=== PATIENT | male | born 1945 | race Caucasian/White ===

== ENCOUNTER 2017-02-15 15:09 | Inpatient (IN) ==
[2017-02-15] MEDS ORDERED: ONDANSETRON 4 MG/2 ML INJECTION IVP ONE (15:31)
--- NOTE | 2017-02-15 15:45 | Emergency Department Report ---
Abdominal Pain HPI - General Chief Complaint: Abdominal Pain Stated Complaint: Stomach pains Time Seen by Provider: 02/15/17 15:23 Source: patient Mode of arrival: ambulatory Limitations: no limitations - History of Present Illness MD complaint: abdominal pain Onset (ago): day(s) (6) Consistency: constant Location: diffuse Severity: moderate Quality: sharp Radiation: none Migration to: no migration Relieving factors: nothing Exacerbating factors: nothing Associated symptoms: denies other symptoms - Related Data Home Medications Medication Instructions Recorded Confirmed Aspirin 325 mg PO DAILY #0 08/19/16 02/15/17 Simvastatin 20 mg PO HS #0 08/19/16 02/15/17 raNITIdine HCl [Acid Windows Mobile Developer] 150 mg PO BID #0 08/19/16 02/15/17 Metoprolol Tartrate 25 mg PO BID #0 08/21/16 02/15/17 Nitroglycerin [Nitrostat] 0.4 mg PO Q5MIN3 PRN #0 08/21/16 02/15/17 Hydrocodone/APAP 5/325 [[place] 1 tab PO Q6H PRN 02/15/17 02/15/17 5/325] Sennosides/Docusate Sodium [Stool 2 tab PO DAILY PRN 02/15/17 02/15/17 Softener Tablet] Allergies Allergy/AdvReac Type Severity Reaction Status Date / Time morphine Allergy Unknown Verified 09/29/16 14:36 hydromorphone AdvReac Mild AGGRESSIVE Verified 09/29/16 14:36 BEHAVIOR Review of Systems Constitutional: Denies: fever, chills, weakness ENT: Denies: ear pain, throat pain, congestion Cardiovascular: Denies: chest pain, palpitations, dyspnea on exertion, edema Respiratory: Denies: cough, dyspnea, wheezes Gastrointestinal: Reports: abdominal pain. Denies: nausea, vomiting, diarrhea, constipation Integumentary: Denies: rash Neurological: Denies: headache, weakness, numbness, paresthesias PFSH CAD CHF HTN hyperlipidemia pancreatitis Surgical History: CABG. cardiac stenting. right shoulder. cholecystectomy. umbilical hernia repair. inguinal hernia repair. back surgery - Social History Smoking status: Former smoker Substance use type: does not use Alcohol intake frequency: does not drink Physical Exam - Limitations Limitations: no limitations - General General appearance: alert, in no apparent distress - Normal Exams: Neck:: Full range of motion, without adenopathy, JVD, bruits or thyromegaly Chest/Respirations:: Clear all pike, with good airflow, and symmetry bilaterally Cardiovascular:: Regular rate and rhythm, without murmur or gallop, Pulses 2+ all extremities, capillary refill, <2 seconds all extremities Integumentary:: No rashes, hives, or bruising noted Neurological:: Patient is alert, and oriented Psychiatric:: Patient exhibits, appropriate attention, emotion and affect - Abdominal Exam Abdominal exam: Present: distention, tenderness (diffuse moderate TTP on all quadrants), guarding, hypoactive bowel sounds. Absent: soft (firm), rebound Course Vital Signs Temperature 97.8 F 02/15/17 15:24 Pulse Rate 72 02/15/17 15:24 Respiratory Rate 18 02/15/17 15:24 Blood Pressure 171/79 H 02/15/17 15:24 Pulse Oximetry 94 02/15/17 15:24 Temperature 97.8 F 02/15/17 15:24 Pulse Rate 72 02/15/17 15:24 Respiratory Rate 18 02/15/17 15:24 Blood Pressure 171/79 H 02/15/17 15:24 Pulse Oximetry 94 02/15/17 15:24 Abdominal Pain - MDM Narrative Medical decision making narrative: WBC 11.0 with 80.9 neutrophils, no band. CMP is normal. Lipase is 9049. CT of abdomen/pelvis is positive for pancreatitis but negative otherwise. Did speak with Dr Berg and she will accept for admission at this time. - Differential Diagnosis Differential diagnosis: Likely: abdominal pain, acute appendicitis, constipation , diverticulitis, small bowel obstruction - Lab Data Attestation: I reviewed the patient's lab results. Result diagrams: 02/15/17 15:38 02/15/17 15:38 - Radiology Data Attestation: I reviewed the patient's radiology results. Disposition Clinical Impression: Pancreatitis Qualifiers: Chronicity: acute Pancreatitis type: unspecified pancreatitis type Acute pancreatitis complication: no infection or necrosis Qualified Code(s): K85.90 - Acute pancreatitis without necrosis or infection, unspecified Disposition: Discharged Home, Self-Care Condition: Stable Prescriptions: No Action Aspirin 325 mg PO DAILY #0 raNITIdine HCl [Acid Windows Mobile Developer] 150 mg PO BID #0 Metoprolol Tartrate 25 mg PO BID #0 Hydrocodone/APAP 5/325 [[place] 5/325] 1 tab PO Q6H PRN PRN Reason: Pain Sennosides/Docusate Sodium [Stool Softener Tablet] 2 tab PO DAILY PRN PRN Reason: Constipation Simvastatin 20 mg PO HS #0 Nitroglycerin [Nitrostat] 0.4 mg PO Q5MIN3 PRN #0 PRN Reason: Chest Pain Referrals: ALLY HORNE MD [Other] Time of Disposition: 16:39 - Seen By: leroy
[2017-02-15] MEDS: NS 1,000 ML IV SCH ×2 (15:47→18:43)
[2017-02-15] MEDS: SALINE FLUSH 10ml SYRINGE IVF PRN ×2 (15:47→18:42)
[2017-02-15] MEDS ORDERED: IOHEXOL 300mg/ml 100ml INJECTION ONE (15:59)
[2017-02-15] MEDS ORDERED: SALINE FLUSH 10ml SYRINGE ONE (15:59)
[2017-02-15] MEDS ORDERED: NS 100 ML ONE (15:59)
--- NOTE | 2017-02-15 16:30 | CT Scan Report ---
Indication: Generalized abdominal pain and nausea for five days PROCEDURE: CT abdomen pelvis w con: Encounter: Initial Comparison: CT abdomen and pelvis dated August 20, 2016 Technique: Axial CT images were performed through the abdomen and pelvis after the administration of intravenous contrast. Coronal and sagittal two-dimensional reformats. Automated Exposure Control and Iterative Reconstruction dose reducing techniques were utilized. Contrast: Omnipaque 300 100 mL Findings: Mild atelectasis in the lower lobes. Heart is enlarged. The liver is normal. Gallbladder is surgically absent. The spleen is normal. There is significant inflammatory change surrounding the pancreatic body and tail with some fluid and inflammation in the lesser sac tracking into the root of the mesentery. The pancreas enhances uniformly however. The adrenal glands and kidneys are stable with bilateral lower pole renal calculi. Portal vein and SMV appear patent. There is a 3.3 cm infrarenal abdominal aortic aneurysm, stable from the comparison exam. No abdominal or pelvic lymphadenopathy. Bladder is grossly normal. No free fluid. Moderate stool throughout the colon. No evidence of a bowel obstruction. The appendix is normal. Bone windows show degenerative change in the lower lumbar spine. Impression: Acute pancreatitis. .
[2017-02-15] MEDS ORDERED: KETOROLAC 30 MG/ML INJECTION IVP ONE (16:32)
[2017-02-15] MEDS ORDERED: ACETAMINOPHEN 325 MG TABLET PO PRN (18:25)
[2017-02-15] MEDS ORDERED: ONDANSETRON 4 MG/2 ML INJECTION IVP PRN (18:25)
[2017-02-15] MEDS ORDERED: METOCLOPRAMIDE 10mg/2ml INJECTION IVP PRN (18:25)
[2017-02-15] MEDS ORDERED: NITROGLYCERIN 0.4 MG SUBLINGUAL TABLET SL PRN (18:32)
[2017-02-15] MEDS: PANTOPRAZOLE 40 MG INJECTION IVP SCH (18:43)
[2017-02-15] MEDS: FentaNYL 100 MCG/2 ML INJECTION IVP PRN ×2 (18:46→22:21)
--- NOTE | 2017-02-15 20:53 | History & Physical Report ---
History of Present Illness Date: 02/15/17 Chief complaint: abdominal pain HPI: Mr. Kathleen 72-year-old gentleman with history of recurrent pancreatitis. Briefly 5 days ago he developed lower abdominal discomfort after lunch. There is no associated nausea or vomiting and symptoms are not typical of past episodes pancreatitis. 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 He thought he might have some mild food poisoning although he had no nausea and no diarrhea. Last night pain intensified and he developed increasing bloating, abdominal distention, nausea, and dry heaves. He has had sweats for the last 2 nights and is unsure if there' s been fever. Pain worsened further this morning when he attempted to eat a banana he breakfast. Subsequently presented to the emergency room where lipase was found to be a little over [address] scan was consistent with acute pancreatitis. Patient is admitted at this time for further management. At the time of assessment he reports that this pain is 7-8 out of 10. Review of Systems All systems: reviewed and no additional remarkable complaints except as stated ( minor cough for several days. Remainder of comprehensive review of systems was negative or as per history of present illness.) [facility] Patient Stated Medical History Congestive Heart Failure-systolic Yes Coronary Artery Disease Yes Hypertension Yes Myocardial Infarction Yes Abdominal aortic aneurysm Pancreatitis, recurrent Surgical History: CABG. cardiac stenting. right rotator cuff 2. cholecystectomy. umbilical hernia repair. Right inguinal hernia repair 2. Left inguinal hernia repair 1. Lumbar disc surgery. inguinal hernia repair. back surgery - Social History Smoking status: Former smoker (approximately [id number] history discontinued 16 months ago) Substance use type: does not use Alcohol intake frequency: other (occasional) Social history: Primary care physician-Dr. Lora Investment Banking Manager-Dr. Mckeon DPOA-, Berna Kathleen CODE STATUS-full Medications Home Medications Medication Instructions Recorded Confirmed Type Aspirin 325 mg PO DAILY #0 08/19/16 02/15/17 History Simvastatin 20 mg PO HS #0 08/19/16 02/15/17 History raNITIdine HCl [Acid Logger Driving Horses] 150 mg PO BID #0 08/19/16 02/15/17 History Metoprolol Tartrate 25 mg PO BID #0 08/21/16 02/15/17 History Nitroglycerin [Nitrostat] 0.4 mg PO Q5MIN3 PRN #0 08/21/16 02/15/17 History Hydrocodone/APAP 5/325 [[place] 1 tab PO Q6H PRN 02/15/17 02/15/17 History 5/325] Sennosides/Docusate Sodium [Stool 2 tab PO DAILY PRN 02/15/17 02/15/17 History Softener Tablet] Allergies Allergy/AdvReac Type Severity Reaction Status Date / Time morphine Allergy Unknown Verified 09/29/16 14:36 hydromorphone AdvReac Mild AGGRESSIVE Verified 09/29/16 14:36 BEHAVIOR Exam Vital Signs: Temp Pulse Resp BP Pulse Ox 97.8 F 74 20 153/67 H 94 02/15/17 17:23 02/15/17 17:23 02/15/17 17:23 02/15/17 17:23 02/15/17 17:23 EXAM: General-moderately obese male, uncomfortable, on room air HEENT-PERRL, EOMI without nystagmus, conjugate gaze, conjunctiva clear, sclera anicteric facial structures symmetric, oropharynx clear, neck supple and without adenopathy Lungs-respirations nonlabored, good airflow, breath sounds clear Cardiac-regular rhythm, S1-S2, 2/6 systolic murmur along the left sternal border Abd-soft, tender to palpation in the upper abdomen more than the lower abdomen, guarding in the upper abdomen, bowel sounds diminished Ext-without edema Skin-without rash or wounds MS-no active synovitis Neuro-moving all extremities well, normal motor tone and power, cranial nerves III through XII grossly intact, sensation intact to light touch 4 extremities Psych-calm, cooperative Height: 1.83 m Weight: 115.7 kg Body Mass Index: 34.6 Results - Labs CBC & Chem 7: 02/15/17 15:38 02/15/17 15:38 Labs: Liver enzymes unremarkable, lipase 9049 Urinalysis +2 protein, trace ketones, +1 bilirubin, 0-1 WBC, 3-5 RBC - Imaging and Cardiology CT scan - abdomen Status: image reviewed by me (bases of the lungs are clear, cardiomegaly, inflammation around the pancreas. 3.3 cm infrarenal aortic aneurysm) Assessment and Plan (1) Pancreatitis Current visit: Yes Status: Acute Assessment and Plan: Acute pancreatitis Uncontrolled abdominal pain Nausea Coronary artery disease Hypertension Chronic systolic CHF-ejection fraction 20-25% 01/16 per old records Infrarenal aortic aneurysm-unchanged from 08/18 Patient is admitted with acute symptomatic pancreatitis. He'll be treated in conventional manner with IV fluids, bowel rest, antiemetics, and IV analgesics. IV PPI initiated. He is intolerant of morphine and Dilaudid and subsequently IV fentanyl will be utilized for pain control. Advance diet as tolerated, monitor electrolytes/liver enzymes, continue home medications for heart disease and hypertension with sips of fluid. SCDs for DVT prophylaxis. Length of stay anticipated to be greater than 2 days. Discussed with ER provider, high-risk medications in use, CT scan reviewed by myself, old records reviewed, laboratory data reviewed. Sepsis Assessment - Evaluation Sepsis screening result: No Definite Risk - Focused Exam Vital Signs Temp Pulse Resp BP Pulse Ox 02/15/17 17:23 97.8 F 74 20 153/67 H 94 02/15/17 17:12 96.7 F L 74 18 163/85 H 95 Hospital Course Summary Disclaimer: The visit summary below is not to be considered part of the above Progress Note. Hospital Course: 02/15/17 21:11 Patient is admitted with acute symptomatic pancreatitis. He'll be treated in conventional manner with IV fluids, bowel rest, antiemetics, and IV analgesics. IV PPI initiated. He is intolerant of morphine and Dilaudid and subsequently IV fentanyl will be utilized for pain control. Advance diet as tolerated, monitor electrolytes/liver enzymes, continue home medications for heart disease and hypertension with sips of fluid. SCDs for DVT prophylaxis. Length of stay anticipated to be greater than 2 days.
[2017-02-15] MEDS: SIMVASTATIN 20 MG TABLET PO SCH (22:24)
[2017-02-16] MEDS: FentaNYL 100 MCG/2 ML INJECTION IVP PRN ×6 (01:42→22:31)
[2017-02-16] MEDS: NS 1,000 ML IV SCH ×3 (04:28→14:52)
[2017-02-16] MEDS: PANTOPRAZOLE 40 MG INJECTION IVP SCH (08:21)
[2017-02-16] MEDS: ASPIRIN 325 MG TABLET PO SCH (08:21)
--- NOTE | 2017-02-16 17:47 | Progress Note ---
Subjective: He reports persistent abdominal pain primarily in the upper abdomen but less bloating than last night and no nausea or vomiting this morning. He has not had a bowel movement since admission but reports minimal oral intake for several days. He has minor dyspnea which is typical but denies wheezing or significant cough. Occasionally cough is productive of clear sputum but he again indicates that this is chronic. He is having a little bit of chest pressure which he attributes to reflux due to lying down continuously. Abdominal pain is now rated 4-5/10. He denied lightheadedness or fevers. He is not hungry and has tolerated ice chips and sips of fluid overnight. Objective Vital signs: Temp Pulse Resp BP Pulse Ox 97.6 F 82 18 138/73 93 02/16/17 15:02/16/17 15:02/16/17 15:02/16/17 15:02/16/17 15:06 Fluid balance +1.7 L EXAM General-NAD, alert, fluent speech HEENT-conjunctiva clear, sclera anicteric, oropharynx clear Lungs-respirations nonlabored, good airflow, breath sounds clear anteriorly/ posteriorly Cardiac-regular rhythm, S1-S2 Abd-soft, moderate distention, mild generalized tenderness-significantly improved from admission, active bowel sounds Ext-without edema Neuro-moving all extremities well/spontaneously Psych-oriented 3, calm, cooperative - Weight: 116.3 kg Results - Labs CBC & Chem 7: 02/16/17 04:42 02/16/17 04:42 Labs: Liver enzymes normal Assessment and Plan (1) Pancreatitis Current visit: Yes Status: Acute Assessment and Plan: Acute pancreatitis Uncontrolled abdominal pain Nausea-improved GERD-symptomatic Coronary artery disease Hypertension Chronic systolic CHF-ejection fraction 20-25% 01/16 per old records Infrarenal aortic aneurysm-unchanged from 08/18 Abdominal symptoms are improving slowly. Continue IV fluids. Continues to require fentanyl IV for pain control with 4 doses since midnight. Reassess electrolytes/lipase in a.m. Clear liquids initiated-advance diet as tolerated. Patient reports some reflux and that in the past has not tolerated PPIs well and has done better with ranitidine than other agents. Home dose of ranitidine resumed orally but will continue IV PPI at present. Blood pressure modestly elevated overnight but appears to be improving as pain control stabilizes. Minor hypoxia present overnight, likely due to narcotic use. Continue to monitor. Laboratory data reviewed, supplemental history provided by the patient's and nursing, high-risk medications in use. Sepsis Assessment - Evaluation Sepsis screening result: No Definite Risk - Focused Exam Vital Signs Temp Pulse Resp BP Pulse Ox 02/16/17 15:06 97.6 F 82 18 138/73 93 02/16/17 06:46 92 02/16/17 06:45 98.8 F 92 22 148/72 H 88 L Capillary refill: < 2-3 Seconds Hospital Course Summary Disclaimer: The visit summary below is not to be considered part of the above Progress Note. Hospital Course: 02/15/17 21:11 Patient is admitted with acute symptomatic pancreatitis. He'll be treated in conventional manner with IV fluids, bowel rest, antiemetics, and IV analgesics. IV PPI initiated. He is intolerant of morphine and Dilaudid and subsequently IV fentanyl will be utilized for pain control. Advance diet as tolerated, monitor electrolytes/liver enzymes, continue home medications for heart disease and hypertension with sips of fluid. SCDs for DVT prophylaxis. Length of stay anticipated to be greater than 2 days. 02/16/17 17:51 Abdominal symptoms are improving slowly. Continue IV fluids. Continues to require fentanyl IV for pain control with 4 doses since midnight. Reassess electrolytes/lipase in a.m. Clear liquids initiated-advance diet as tolerated. Patient reports some reflux and that in the past has not tolerated PPIs well and has done better with ranitidine than other agents. Home dose of ranitidine resumed orally but will continue IV PPI at present. Blood pressure modestly elevated overnight but appears to be improving as pain control stabilizes. Minor hypoxia present overnight, likely due to narcotic use. Continue to monitor. 02/16/17 17:53
[2017-02-16] MEDS: SIMVASTATIN 20 MG TABLET PO SCH (22:25)
[2017-02-16] MEDS: RANITIDINE 150 MG TABLET PO SCH (22:25)
[2017-02-17] MEDS: FentaNYL 100 MCG/2 ML INJECTION IVP PRN ×8 (00:15→22:47)
[2017-02-17] MEDS: SALINE FLUSH 10ml SYRINGE IVF PRN ×3 (00:15→04:12)
[2017-02-17] MEDS: NS 1,000 ML IV SCH ×2 (00:16→12:07)
[2017-02-17] MEDS: ASPIRIN 325 MG TABLET PO SCH (09:20)
[2017-02-17] MEDS: RANITIDINE 150 MG TABLET PO SCH ×2 (09:20→22:50)
[2017-02-17] MEDS: PANTOPRAZOLE 40 MG INJECTION IVP SCH (09:21)
--- NOTE | 2017-02-17 13:05 | Progress Note ---
Subjective: Pt reports he is still having some abdominal discomfort. Reports he ate broth during the day yesterday and he had severe abdominal pain at night with n/v. Denies any cp, sob, f/c. Objective Vital signs: Temp Pulse Resp BP Pulse Ox 99.3 F 93 18 156/74 H 92 02/17/17 07:59 02/17/17 07:59 02/17/17 07:59 02/17/17 07:59 02/17/17 07:59 Weight: 118.2 kg - Constitutional Present: no acute distress, well nourished - Routine HEENT Exam Head: Present: normocephalic Eye: Present: EOMI ENT: Present: mucous membranes moist - Routine Respiratory Exam Present: CTA bilaterally. Absent: wheezes - Routine Cardiovascular Exam Present: RRR, no murmur - Routine Abdominal Exam Present: soft, tenderness, distended - Routine Extremities Exam Absent: cyanosis, clubbing, edema - Routine Skin Exam Present: intact, dry - Routine Neurological Exam Present: alert, oriented X3 Results - Labs CBC & Chem 7: 02/16/17 04:42 02/17/17 03:58 Assessment and Plan (1) Pancreatitis Current visit: Yes Status: Acute Assessment and Plan: Acute recurrent pancreatitis -Unclear etiology, lipase 9K, CT shows diffuse inflammation -First had multiple episodes 10-12 yrs ago but not since GB had been taken out 10 yrs ago, but now 2 episodes in the last 6 months -Denies frequent EtOH use, med list not that impressive other then possibly simvastatin(will hold), former smoker, Ca wnls -Order lipid panel, igg4, needs EUS/ERCP -advance diet as tolerated, pain control Coronary artery disease -Cont. home ASA, Metoprolol -Hold simvastatin d/t pancreatitis Hypertension -Cont. Metoprolol HFrEF -ejection fraction 20-25% 01/16 per old records -Careful IV fluids, on BB but no ACEI? spiralactone? ICD? Infrarenal aortic aneurysm-unchanged from 08/18 Ppx -DVT-SCD Sepsis Assessment - Evaluation Sepsis screening result: No Definite Risk - Focused Exam Vital Signs Temp Pulse Resp BP Pulse Ox 02/17/17 07:59 99.3 F 93 18 156/74 H 92 Capillary refill: < 2-3 Seconds Hospital Course Summary Disclaimer: The visit summary below is not to be considered part of the above Progress Note. Hospital Course: 02/15/17 21:11 Patient is admitted with acute symptomatic pancreatitis. He'll be treated in conventional manner with IV fluids, bowel rest, antiemetics, and IV analgesics. IV PPI initiated. He is intolerant of morphine and Dilaudid and subsequently IV fentanyl will be utilized for pain control. Advance diet as tolerated, monitor electrolytes/liver enzymes, continue home medications for heart disease and hypertension with sips of fluid. SCDs for DVT prophylaxis. Length of stay anticipated to be greater than 2 days. 02/16/17 17:51 Abdominal symptoms are improving slowly. Continue IV fluids. Continues to require fentanyl IV for pain control with 4 doses since midnight. Reassess electrolytes/lipase in a.m. Clear liquids initiated-advance diet as tolerated. Patient reports some reflux and that in the past has not tolerated PPIs well and has done better with ranitidine than other agents. Home dose of ranitidine resumed orally but will continue IV PPI at present. Blood pressure modestly elevated overnight but appears to be improving as pain control stabilizes. Minor hypoxia present overnight, likely due to narcotic use. Continue to monitor. 02/16/17 17:53 02/17/17 13:05 Pt improving slowly although did not tolerate diet well yesterday, unclear how much work up pt has had for his recurrent pancreatitis, will do some work up now and pt will likely need EUS/ERCP. Cont. to manage supportively. Pt seems to have a diagnosis of HFrEF but not on optimal medical therapy for unclear reasons , will need to review chart further.
[2017-02-18] MEDS: NS 1,000 ML IV SCH ×2 (00:21→09:59)
[2017-02-18] MEDS: FentaNYL 100 MCG/2 ML INJECTION IVP PRN ×2 (02:43→06:56)
[2017-02-18] MEDS ORDERED: HYDROCODONE/APAP 5mg/325mg TABLET PO PRN (09:05)
--- NOTE | 2017-02-18 09:09 | Progress Note ---
Subjective: Pt reports he is feeling better this am. He tried some sort of ice cream thing last night and tolerated that okay. Reports some bloating and mild abdominal pain. Denies any cp, sob, n/v/d, f/c. Objective Vital signs: Temp Pulse Resp BP Pulse Ox 99.5 F 81 24 146/81 H 93 02/18/17 07:45 02/18/17 07:45 02/18/17 07:45 02/18/17 07:45 02/18/17 07:45 Weight: 117.5 kg - Constitutional Present: no acute distress, well nourished - Routine HEENT Exam Head: Present: normocephalic, atraumatic - Routine Respiratory Exam Present: CTA bilaterally. Absent: wheezes - Routine Cardiovascular Exam Present: RRR, no murmur - Routine Abdominal Exam Present: soft, non tender, distended - Routine Extremities Exam Absent: cyanosis, clubbing, edema - Routine Skin Exam Present: intact, dry - Routine Neurological Exam Present: alert, oriented X3 Results - Labs CBC & Chem 7: 02/16/17 04:42 02/18/17 04:13 Assessment and Plan (1) Pancreatitis Current visit: Yes Status: Acute Assessment and Plan: Acute recurrent pancreatitis -Unclear etiology, lipase 9K, CT shows diffuse inflammation -First had multiple episodes 10-12 yrs ago but not since GB had been taken out 10 yrs ago, but now 2 episodes in the last 6 months -Denies frequent EtOH use, med list not that impressive other then possibly simvastatin(will hold), former smoker, Ca wnls -lipid panel pending, igg4 pending, needs EUS/ERCP -advance diet as tolerated, pain control Coronary artery disease -Cont. home ASA, Metoprolol -Hold simvastatin d/t pancreatitis Hypertension -Cont. Metoprolol HFrEF -ejection fraction 20-25% 01/16 per old records -Careful IV fluids, on BB but no ACEI? spiralactone? ICD? Infrarenal aortic aneurysm-unchanged from 08/18 Ppx -DVT-SCD Sepsis Assessment - Evaluation Sepsis screening result: No Definite Risk - Focused Exam Vital Signs Temp Pulse Resp BP Pulse Ox 02/18/17 07:45 99.5 F 81 24 146/81 H 93 02/17/17 22:00 97.2 F 77 16 159/74 H 93 Respiratory exam: Present: CTA bilaterally. Absent: wheezes Cardiovascular exam: Present: RRR, no murmur Capillary refill: < 2-3 Seconds Hospital Course Summary Disclaimer: The visit summary below is not to be considered part of the above Progress Note. Hospital Course: 02/15/17 21:11 Patient is admitted with acute symptomatic pancreatitis. He'll be treated in conventional manner with IV fluids, bowel rest, antiemetics, and IV analgesics. IV PPI initiated. He is intolerant of morphine and Dilaudid and subsequently IV fentanyl will be utilized for pain control. Advance diet as tolerated, monitor electrolytes/liver enzymes, continue home medications for heart disease and hypertension with sips of fluid. SCDs for DVT prophylaxis. Length of stay anticipated to be greater than 2 days. 02/16/17 17:51 Abdominal symptoms are improving slowly. Continue IV fluids. Continues to require fentanyl IV for pain control with 4 doses since midnight. Reassess electrolytes/lipase in a.m. Clear liquids initiated-advance diet as tolerated. Patient reports some reflux and that in the past has not tolerated PPIs well and has done better with ranitidine than other agents. Home dose of ranitidine resumed orally but will continue IV PPI at present. Blood pressure modestly elevated overnight but appears to be improving as pain control stabilizes. Minor hypoxia present overnight, likely due to narcotic use. Continue to monitor. 02/16/17 17:53 02/17/17 13:05 Pt improving slowly although did not tolerate diet well yesterday, unclear how much work up pt has had for his recurrent pancreatitis, will do some work up now and pt will likely need EUS/ERCP. Cont. to manage supportively. Pt seems to have a diagnosis of HFrEF but not on optimal medical therapy for unclear reasons , will need to review chart further.
[2017-02-18] MEDS ORDERED: NS 1,000 ML IV SCH (09:15)
[2017-02-18] MEDS: RANITIDINE 150 MG TABLET PO SCH ×2 (09:59→22:21)
[2017-02-18] MEDS: ASPIRIN 325 MG TABLET PO SCH (10:00)
[2017-02-18] MEDS: PANTOPRAZOLE 40 MG INJECTION IVP SCH (10:00)
[2017-02-18] MEDS: HYDROCODONE/APAP 5mg/325mg TABLET PO PRN ×2 (11:56→18:30)
[2017-02-18] MEDS ORDERED: BISACODYL 10 MG SUPPOSITORY RECTALLY PRN (12:18)
[2017-02-19] MEDS: HYDROCODONE/APAP 5mg/325mg TABLET PO PRN ×5 (00:12→22:22)
[2017-02-19] MEDS: PANTOPRAZOLE 40 MG INJECTION IVP SCH (09:40)
[2017-02-19] MEDS: ASPIRIN 325 MG TABLET PO SCH (09:41)
[2017-02-19] MEDS: RANITIDINE 150 MG TABLET PO SCH ×2 (09:41→21:17)
--- NOTE | 2017-02-19 10:24 | Progress Note ---
Subjective: Pt doing better this am. Tolerated his fluid diet well, seems okay to advance it. Pain is controlled okay but would like the pain meds a little more often then q6H. Denies any n/v/d, f/c, cp or sob. Objective Vital signs: Temp Pulse Resp BP Pulse Ox 96.1 F L 74 22 145/71 H 92 02/19/17 08:25 02/19/17 08:25 02/19/17 08:25 02/19/17 08:25 02/19/17 08:25 Weight: 117 kg - Constitutional Present: no acute distress, well nourished - Routine HEENT Exam Head: Present: normocephalic, atraumatic Eye: Present: EOMI ENT: Present: mucous membranes moist, oropharynx clear - Routine Respiratory Exam Present: CTA bilaterally. Absent: wheezes - Routine Cardiovascular Exam Present: RRR, no murmur - Routine Abdominal Exam Present: soft, non tender, distended - Routine Extremities Exam Absent: cyanosis, clubbing, edema - Routine Skin Exam Present: intact, dry, warm - Routine Neurological Exam Present: alert, oriented X3 Results - Labs CBC & Chem 7: 02/16/17 04:42 02/18/17 04:13 Assessment and Plan (1) Pancreatitis Current visit: Yes Status: Acute Assessment and Plan: Acute recurrent pancreatitis -Unclear etiology, lipase 9K, CT shows diffuse inflammation -First had multiple episodes 10-12 yrs ago but not since GB had been taken out 10 yrs ago, but now 2 episodes in the last 6 months -Denies frequent EtOH use, med list not that impressive other then possibly simvastatin(will hold), former smoker, Ca wnls -lipid panel pending, igg4 pending, needs EUS/ERCP -advance diet to soft foods today, pain control going ok Coronary artery disease -Cont. home ASA, Metoprolol -Hold simvastatin d/t pancreatitis Hypertension -Cont. Metoprolol HFrEF -ejection fraction 20-25% 01/16 per old records -Careful IV fluids, on BB but no ACEI? spiralactone? ICD? -Pt reports he has had trouble with side effects with cardiac meds before but he does report seeing a automated process operator that is managing his CHF Infrarenal aortic aneurysm-unchanged from 08/18 Ppx -DVT-SCD Sepsis Assessment - Evaluation Sepsis screening result: No Definite Risk - Focused Exam Vital Signs Temp Pulse Resp BP Pulse Ox 02/19/17 08:25 96.1 F L 74 22 145/71 H 92 Respiratory exam: Present: CTA bilaterally. Absent: wheezes Cardiovascular exam: Present: RRR, no murmur Capillary refill: < 2-3 Seconds Hospital Course Summary Disclaimer: The visit summary below is not to be considered part of the above Progress Note. Hospital Course: 02/15/17 21:11 Patient is admitted with acute symptomatic pancreatitis. He'll be treated in conventional manner with IV fluids, bowel rest, antiemetics, and IV analgesics. IV PPI initiated. He is intolerant of morphine and Dilaudid and subsequently IV fentanyl will be utilized for pain control. Advance diet as tolerated, monitor electrolytes/liver enzymes, continue home medications for heart disease and hypertension with sips of fluid. SCDs for DVT prophylaxis. Length of stay anticipated to be greater than 2 days. 02/16/17 17:51 Abdominal symptoms are improving slowly. Continue IV fluids. Continues to require fentanyl IV for pain control with 4 doses since midnight. Reassess electrolytes/lipase in a.m. Clear liquids initiated-advance diet as tolerated. Patient reports some reflux and that in the past has not tolerated PPIs well and has done better with ranitidine than other agents. Home dose of ranitidine resumed orally but will continue IV PPI at present. Blood pressure modestly elevated overnight but appears to be improving as pain control stabilizes. Minor hypoxia present overnight, likely due to narcotic use. Continue to monitor. 02/16/17 17:53 02/17/17 13:05 Pt improving slowly although did not tolerate diet well yesterday, unclear how much work up pt has had for his recurrent pancreatitis, will do some work up now and pt will likely need EUS/ERCP. Cont. to manage supportively. Pt seems to have a diagnosis of HFrEF but not on optimal medical therapy for unclear reasons , will need to review chart further. 02/19/17 10:24 Pt is improving slowly, will advance diet to soft foods today, if continues to tolerate food well possibly discharge tomorrow. Pt will need EUS(ERCP is an option too) as well, can try to set up as outpatient. Pt reports bc of his previous side effects from cardiac meds he is only on certain medications for his HFrEF and that his automated process operator is managing it.
[2017-02-19] MEDS: DOCUSATE SODIUM 100 MG CAPSULE PO PRN (22:22)
[2017-02-20] MEDS: HYDROCODONE/APAP 5mg/325mg TABLET PO PRN ×5 (03:29→20:46)
[2017-02-20] MEDS: SALINE FLUSH 10ml SYRINGE IVF PRN ×2 (03:31→21:33)
[2017-02-20] MEDS: PANTOPRAZOLE 40 MG INJECTION IVP SCH (08:41)
[2017-02-20] MEDS: ASPIRIN 325 MG TABLET PO SCH (08:41)
[2017-02-20] MEDS: RANITIDINE 150 MG TABLET PO SCH ×2 (08:41→20:45)
--- NOTE | 2017-02-20 13:43 | Progress Note ---
Subjective: Pt doing better, tolerating po intake well. Reports mild abdominal pain intermittently but denies any n/v/d, f/c, cp or sob. Objective Vital signs: Temp Pulse Resp BP Pulse Ox 96.6 F L 76 18 155/75 H 92 02/20/17 07:37 02/20/17 07:37 02/20/17 07:37 02/20/17 07:37 02/20/17 07:37 Rhythm: Normal Sinus Rhythm Weight: 116.2 kg - Constitutional Present: no acute distress, well nourished - Routine HEENT Exam Head: Present: normocephalic, atraumatic Eye: Present: EOMI ENT: Present: mucous membranes moist - Routine Respiratory Exam Present: CTA bilaterally. Absent: wheezes - Routine Cardiovascular Exam Present: RRR, no murmur - Routine Abdominal Exam Present: soft, non distended, non tender - Routine Extremities Exam Present: no edema. Absent: cyanosis, clubbing - Routine Skin Exam Present: intact, dry, warm - Routine Neurological Exam Present: alert, oriented X3 Results - Labs CBC & Chem 7: 02/16/17 04:42 02/18/17 04:13 Assessment and Plan (1) Pancreatitis Current visit: Yes Status: Acute Assessment and Plan: Acute recurrent pancreatitis -Unclear etiology, lipase 9K, CT shows diffuse inflammation -First had multiple episodes 10-12 yrs ago but not since GB had been taken out 10 yrs ago, but now 2 episodes in the last 6 months -Denies frequent EtOH use, med list not that impressive other then possibly simvastatin(will hold), former smoker, Ca wnls -lipid panel unremarkable, igg4 pending, needs EUS/ERCP -advance diet to full today, pain control going ok Coronary artery disease -Cont. home ASA, Metoprolol -Hold simvastatin d/t pancreatitis Hypertension -Cont. Metoprolol HFrEF -ejection fraction 20-25% 01/16 per old records -Careful IV fluids, on BB but no ACEI? spiralactone? ICD? 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 Hospital Course: 02/15/17 21:11 Patient is admitted with acute symptomatic pancreatitis. He'll be treated in conventional manner with IV fluids, bowel rest, antiemetics, and IV analgesics. IV PPI initiated. He is intolerant of morphine and Dilaudid and subsequently IV fentanyl will be utilized for pain control. Advance diet as tolerated, monitor electrolytes/liver enzymes, continue home medications for heart disease and hypertension with sips of fluid. SCDs for DVT prophylaxis. Length of stay anticipated to be greater than 2 days. 02/16/17 17:51 Abdominal symptoms are improving slowly. Continue IV fluids. Continues to require fentanyl IV for pain control with 4 doses since midnight. Reassess electrolytes/lipase in a.m. Clear liquids initiated-advance diet as tolerated. Patient reports some reflux and that in the past has not tolerated PPIs well and has done better with ranitidine than other agents. Home dose of ranitidine resumed orally but will continue IV PPI at present. Blood pressure modestly elevated overnight but appears to be improving as pain control stabilizes. Minor hypoxia present overnight, likely due to narcotic use. Continue to monitor. 02/16/17 17:53 02/17/17 13:05 Pt improving slowly although did not tolerate diet well yesterday, unclear how much work up pt has had for his recurrent pancreatitis, will do some work up now and pt will likely need EUS/ERCP. Cont. to manage supportively. Pt seems to have a diagnosis of HFrEF but not on optimal medical therapy for unclear reasons , will need to review chart further. 02/19/17 10:24 Pt is improving slowly, will advance diet to soft foods today, if continues to tolerate food well possibly discharge tomorrow. Pt will need EUS(ERCP is an option too) as well, can try to set up as outpatient. Pt reports bc of his previous side effects from cardiac meds he is only on certain medications for his HFrEF and that his painter tumbling barrel is managing it. 02/20/17 13:43 Pt continues to do well and tolerate PO intake well. Will advance to full diet today and plan for discharge tomorrow as pt reports he feels more comfortable going home tomorrow. Will have pt f/u with GI as outpatient for possible EUS.
[2017-02-20] MEDS: DOCUSATE SODIUM 100 MG CAPSULE PO PRN (21:30)
[2017-02-21] MEDS: HYDROCODONE/APAP 5mg/325mg TABLET PO PRN ×3 (01:58→11:58)
[2017-02-21] MEDS ORDERED: PANTOPRAZOLE 20 MG TABLET PO SCH (06:30)
[2017-02-21] MEDS: ASPIRIN 325 MG TABLET PO SCH (08:51)
[2017-02-21] MEDS: RANITIDINE 150 MG TABLET PO SCH (08:51)
--- NOTE | 2017-02-21 11:09 | Discharge Summary ---
Discharge Information Date of admission: 02/15/17 16:50 Anticipated date of discharge: 02/21/17 Attending Physician: Madeleine Berg MD Primary care physician: ALLY HORNE - Discharge Diagnosis (1) Pancreatitis Qualifiers: Chronicity: acute Pancreatitis type: unspecified pancreatitis type Acute pancreatitis complication: no infection or necrosis Qualified Code(s): K85.90 - Acute pancreatitis without necrosis or infection, unspecified Status: Acute - Laboratory Labs: 02/16/17 04:42 02/18/17 04:13 History of Present Illness HPI: Mr. Kathleen 72-year-old gentleman with history of recurrent pancreatitis. Briefly 5 days ago he developed lower abdominal discomfort after lunch. There is no associated nausea or vomiting and symptoms are not typical of past episodes pancreatitis. 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 He thought he might have some mild food poisoning although he had no nausea and no diarrhea. Last night pain intensified and he developed increasing bloating, abdominal distention, nausea, and dry heaves. He has had sweats for the last 2 nights and is unsure if there' s been fever. Pain worsened further this morning when he attempted to eat a banana he breakfast. Subsequently presented to the emergency room where lipase was found to be a little over [address] scan was consistent with acute pancreatitis. Patient is admitted at this time for further management. At the time of assessment he reports that this pain is 7-8 out of 10. Hospital Course Hospital course: Brief Summary Pt was admitted with pancreatitis of unclear etiology. Pt has had recurrent episodes in the past and had his GB taken out and was fine for a while but then had two pancreatitis episodes in the last 6 months. Ca, lipid panel, medication list were not very impressive for etiology. Testing for autoimmune pancreatitis with Igg4 was unremarkable as well. Pt was on statin but seems unlikely to be etiology. Pt needs evaluation by GI and likely an EUS or possibly ERCP. Set up pt with GI clinic in [place]. Pt recovered well from his pancreatitis. He was tolerating full diet and pain was well managed. Pt reported he would prefer some hydrocodone to go home on and will then f/u with pcp from their. Detailed Summary 02/15/17 21:11 Patient is admitted with acute symptomatic pancreatitis. He'll be treated in conventional manner with IV fluids, bowel rest, antiemetics, and IV analgesics. IV PPI initiated. He is intolerant of morphine and Dilaudid and subsequently IV fentanyl will be utilized for pain control. Advance diet as tolerated, monitor electrolytes/liver enzymes, continue home medications for heart disease and hypertension with sips of fluid. SCDs for DVT prophylaxis. Length of stay anticipated to be greater than 2 days. 02/16/17 17:51 Abdominal symptoms are improving slowly. Continue IV fluids. Continues to require fentanyl IV for pain control with 4 doses since midnight. Reassess electrolytes/lipase in a.m. Clear liquids initiated-advance diet as tolerated. Patient reports some reflux and that in the past has not tolerated PPIs well and has done better with ranitidine than other agents. Home dose of ranitidine resumed orally but will continue IV PPI at present. Blood pressure modestly elevated overnight but appears to be improving as pain control stabilizes. Minor hypoxia present overnight, likely due to narcotic use. Continue to monitor. 02/16/17 17:53 02/17/17 13:05 Pt improving slowly although did not tolerate diet well yesterday, unclear how much work up pt has had for his recurrent pancreatitis, will do some work up now and pt will likely need EUS/ERCP. Cont. to manage supportively. Pt seems to have a diagnosis of HFrEF but not on optimal medical therapy for unclear reasons , will need to review chart further. 02/19/17 10:24 Pt is improving slowly, will advance diet to soft foods today, if continues to tolerate food well possibly discharge tomorrow. Pt will need EUS(ERCP is an option too) as well, can try to set up as outpatient. 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 02/20/17 13:43 Pt continues to do well and tolerate PO intake well. Will advance to full diet today and plan for discharge tomorrow as pt reports he feels more comfortable going home tomorrow. Will have pt f/u with GI as outpatient for possible EUS. Discharge Plan - Med Rec/Dispo [facility] Instructions: Biliary Colic (GEN) Prescriptions: Continue Aspirin 325 mg PO DAILY #0 raNITIdine HCl [Acid Senior Solutions Architect] 150 mg PO BID #0 Metoprolol Tartrate 25 mg PO BID #0 Sennosides/Docusate Sodium [Stool Softener Tablet] 2 tab PO DAILY PRN PRN Reason: Constipation Simvastatin 20 mg PO HS #0 Nitroglycerin [Nitrostat] 0.4 mg PO Q5MIN3 PRN #0 PRN Reason: Chest Pain Hydrocodone/APAP 5/325 [[place] 5/325] 1 tab PO Q6H PRN #14 PRN Reason: Pain Discharge Instructions/Outpatient Orders: Final Provider Discharge Instructions Location: Determined By Patient - Disposition 01 Discharged Home, Self-Care
== END 2017-02-21 13:04 | disposition home or self-care (01) | DRG 439 ==
LOC: ED 15:09 → MED 16:50
PROVIDERS: ADMIT Internal Medicine; ATTEND Internal Medicine